=== PATIENT | female | born 1955 | race Caucasian/White ===

== ENCOUNTER 2019-08-11 19:25 | Observation (INO) | payer MEDICARE, MEDICAID ==
[~2019-08-11] VITALS: Ht 170.2 cm; Wt 100.8 kg
[~2019-08-11 19:25] MED LIST: GLIM2TAB7 PO; LOSA1TAB19 PO; METF10002 PO; TRAZ50TA66 PO
[2019-08-11] MEDS ORDERED: SITA100T PO (19:37)
[2019-08-11] MEDS ORDERED: GABA800T5 PO (19:37)
[2019-08-11] MEDS ORDERED: ASPI-515 PO (19:37)
[2019-08-11] MEDS ORDERED: [UNRECOGNIZED DRUG - CODE] PO (19:37)
[2019-08-11] MEDS ORDERED: ALBUTEROL/IPRATROPIUM 2.5MG/0.5MG, 3 ML ONE (19:49)
[2019-08-11] MEDS ORDERED: HYDROmorphone 1 MG/ML, 1ML INJ IV PRN (20:00)
[2019-08-11] MEDS ORDERED: ALBUTEROL/IPRATROPIUM 2.5MG/0.5MG, 3 ML NPPB SCH (20:00)
[2019-08-11] MEDS ORDERED: SODIUM CHLORIDE 0.9% 1,000ML IVBOLUS ONE (20:00)
[2019-08-11] MEDS ORDERED: SODIUM CHLORIDE FLUSH 10ML SYR IVF ONE (20:00)
[2019-08-11] MEDS ORDERED: ONDANSETRON 2MG/ML, 2ML ONE (20:13)
[2019-08-11] MEDS ORDERED: HYDROmorphone 1 MG/ML, 1ML INJ ONE (20:13)
[2019-08-11 20:16] LABS: RAPID INFLUENZA A Negative (Negative); RAPID INFLUENZA B Negative (Negative)
[2019-08-11 20:26] LABS: ALANINE AMINOTRANSFERASE 42 U/L (12-78); ANION GAP 7 mmol/L (5-15); CHLORIDE 108 mmol/L (98-107)
[2019-08-11 20:30] LABS: BASOPHILS # (AUTO) 0.02 x10^3/uL (0-0.1); BASOPHILS % (AUTO) 0 % (0-1); EOSINOPHILS # (AUTO) 0.42 x10^3/uL (0-0.4); EOSINOPHILS % (AUTO) 4 % (1-7); LYMPHOCYTES # (AUTO) 1.58 x10^3/uL (1-3.4); LYMPHOCYTES % (AUTO) 17 % (22-44); MD NO; MEAN CORPUSCULAR HEMOGLOBIN 24.4 pg (27.0-34.8); MEAN CORPUSCULAR HGB CONC 32.2 g/dL (32.4-35.8); MEAN CORPUSCULAR VOLUME 75.6 fL (80-100); MEAN PLATELET VOLUME 9.4 fL (7.4-10.4); MONOCYTES # (AUTO) 0.48 x10^3/uL (0.2-0.8); MONOCYTES % (AUTO) 5 % (2-9); NEUTROPHILS # (AUTO) 7.03 x10^3/uL (1.8-6.8); NEUTROPHILS % (AUTO) 74 % (42-75); PLATELET COUNT 190 x10^3/uL (130-400); RED BLOOD COUNT 6.02 x10^6/uL (3.82-5.3); RED CELL DISTRIBUTION WIDTH 14.3 % (9.6-15.2)
[2019-08-11] MEDS ORDERED: ONDANSETRON 2MG/ML, 2ML IVPush ONE (20:30)
[2019-08-11 20:31] LABS: ALKALINE PHOSPHATASE 134 U/L (45-117); BILIRUBIN,TOTAL 0.6 mg/dL (0.2-1.0); CREATININE 1.12 mg/dL (0.55-1.02); TOTAL PROTEIN 7.5 g/dL (6.4-8.2); TROPONIN I < 0.015 ng/mL (0.000-0.045)
[2019-08-11] MEDS ORDERED: methylPREDNISolone SOD SUCC 125 MG/2 ML ONE (22:35)
--- NOTE | 2019-08-11 22:55 | NUR ---
PT RESTING ON MARANDA. UPDATED ON POC.
--- NOTE | 2019-08-11 22:59 | NUR ---
REPORT TO TERESITA TORREZ
[2019-08-11] MEDS ORDERED: methylPREDNISolone SOD SUCC 125 MG/2 ML IV ONE (23:00)
[2019-08-11 23:20] VITALS: BP 123/86
[2019-08-11 23:21] VITALS: BP 123/86
[2019-08-12 02:00] VITALS: BP 138/83
[2019-08-12] MEDS ORDERED: ATOR40TA PO (02:47)
[2019-08-12] MEDS ORDERED: LOSA25TA25 PO (02:48)
[2019-08-12] MEDS: ENOXAPARIN 40 MG/0.4 ML SQ SCH (02:59)
[2019-08-12] MEDS ORDERED: DOCUSATE 100 MG CAPSULE PO PRN (03:00)
[2019-08-12] MEDS ORDERED: ENALAPRILAT 1.25 MG/ML, 2ML IVPush PRN (03:00)
[2019-08-12] MEDS ORDERED: DEXTROSE 4 GM TAB.CHEW PO PRN (03:00)
[2019-08-12] MEDS ORDERED: DEXTROSE 50%, 50ML SYRINGE IVPush PRN (03:00)
[2019-08-12] MEDS ORDERED: LABETALOL 5MG/ML, 20ML IVPush PRN (03:00)
[2019-08-12] MEDS ORDERED: GLUCAGON 1 MG IM PRN (03:00)
[2019-08-12] MEDS ORDERED: BISACODYL 10 MG SUPP PR PRN (03:00)
[2019-08-12] MEDS ORDERED: PROMETHAZINE 25 MG/ML, 1ML IM PRN (03:00)
[2019-08-12] MEDS ORDERED: POLYETHYLENE GLYCOL 17 GM PACKET PO PRN (03:00)
[2019-08-12] MEDS ORDERED: POTASSIUM CHLORIDE 20 MEQ TAB.ER.PRT PO ONE (03:00)
[2019-08-12] MEDS ORDERED: ONDANSETRON 2MG/ML, 2ML IVPush PRN (03:00)
[2019-08-12] MEDS ORDERED: SODIUM CHLORIDE 0.9% 1,000 ML IV SCH (03:00)
[2019-08-12] MEDS ORDERED: OMNIPAQUE 350 MG/ML, 100ML BOTTLE ONE (03:30)
[2019-08-12 03:34] LABS: BASOPHILS # (AUTO) 0.01 x10^3/uL (0-0.1); BASOPHILS % (AUTO) 0 % (0-1); EOSINOPHILS # (AUTO) 0.03 x10^3/uL (0-0.4); EOSINOPHILS % (AUTO) 0 % (1-7); LYMPHOCYTES % (AUTO) 6 % (22-44); MD NO; MEAN CORPUSCULAR HEMOGLOBIN 24.5 pg (27.0-34.8); MEAN CORPUSCULAR HGB CONC 32.6 g/dL (32.4-35.8); MEAN CORPUSCULAR VOLUME 75.3 fL (80-100); MEAN PLATELET VOLUME 8.9 fL (7.4-10.4); MONOCYTES # (AUTO) 0.09 x10^3/uL (0.2-0.8); MONOCYTES % (AUTO) 1 % (2-9); NEUTROPHILS % (AUTO) 93 % (42-75); PLATELET COUNT 170 x10^3/uL (130-400); RED BLOOD COUNT 5.55 x10^6/uL (3.82-5.3); RED CELL DISTRIBUTION WIDTH 14.9 % (9.6-15.2)
[2019-08-12] MEDS: DOXYCYCLINE 100 MG in DEXTROSE 5% 250 ML IV SCH ×2 (03:37→14:57)
[2019-08-12 03:48] LABS: ALBUMIN 3.5 g/dL (3.4-5.0); ANION GAP 7 mmol/L (5-15); CALCIUM 8.6 mg/dL (8.5-10.1); CHLORIDE 110 mmol/L (98-107)
[2019-08-12 03:52] LABS: ALANINE AMINOTRANSFERASE 36 U/L (12-78); ALKALINE PHOSPHATASE 122 U/L (45-117); BILIRUBIN,TOTAL 0.5 mg/dL (0.2-1.0); CREATININE 1.08 mg/dL (0.55-1.02)
[2019-08-12 03:54] LABS: TROPONIN I < 0.015 ng/mL (0.000-0.045)
[2019-08-12 07:36] VITALS: BP 132/78
[2019-08-12] MEDS: ASPIRIN 81 MG TABLET EC PO SCH (07:51)
[2019-08-12] MEDS: LINAGLIPTIN 5 MG TAB PO SCH (07:51)
[2019-08-12] MEDS: HYDROCHLOROTHIAZIDE 12.5 MG CAPSULE PO SCH (07:51)
[2019-08-12] MEDS: ACETAMINOPHEN 325 MG TABLET PO PRN ×2 (07:51→16:37)
[2019-08-12] MEDS: LOSARTAN 50MG TABLET PO SCH (07:51)
[2019-08-12] MEDS: GABAPENTIN 400 MG CAPSULE PO SCH ×3 (07:51→20:46)
[2019-08-12] MEDS: SODIUM CHLORIDE FLUSH 10ML SYR IVF SCH ×2 (07:54→20:47)
[2019-08-12 08:39] LABS: TROPONIN I < 0.015 ng/mL (0.000-0.045)
[2019-08-12] MEDS: INSULIN GLARGINE 100 UNITS/ML, PEN SQ-INSULIN SCH ×2 (09:38→20:47)
[2019-08-12] MEDS: INSULIN LISPRO 100 UNITS/ML, PEN SQ-INSULIN SCH ×4 (09:39→20:47)
[2019-08-12] MEDS: GUAIFENESIN/DM 200-20MG, 10ML UDC PO PRN ×2 (09:59→16:33)
[2019-08-12] MEDS: BENZONATATE 100 MG CAPSULE PO PRN ×2 (11:32→20:46)
[2019-08-12 12:30] VITALS: BP 144/82
[2019-08-12 19:45] VITALS: BP 146/92
[2019-08-12] MEDS: TRAZODONE 50MG TABLET PO SCH (20:46)
[2019-08-12] MEDS: ATORVASTATIN 40 MG TABLET PO SCH (20:46)
[2019-08-13 00:41] VITALS: BP 138/87
[2019-08-13] MEDS: ENOXAPARIN 40 MG/0.4 ML SQ SCH (03:15)
[2019-08-13] MEDS: DOXYCYCLINE 100 MG in DEXTROSE 5% 250 ML IV SCH (03:15)
[2019-08-13] MEDS: GUAIFENESIN/DM 200-20MG, 10ML UDC PO PRN ×2 (03:24→16:12)
[2019-08-13 06:28] VITALS: BP 107/65
[2019-08-13] MEDS: INSULIN LISPRO 100 UNITS/ML, PEN SQ-INSULIN SCH ×4 (07:00→20:48)
[2019-08-13] MEDS ORDERED: IBUPROFEN 200 MG TABLET PO PRN (09:00)
[2019-08-13] MEDS: SODIUM CHLORIDE FLUSH 10ML SYR IVF SCH ×2 (09:00→20:38)
[2019-08-13] MEDS: INSULIN GLARGINE 100 UNITS/ML, PEN SQ-INSULIN SCH ×2 (09:16→20:48)
[2019-08-13] MEDS: GABAPENTIN 400 MG CAPSULE PO SCH ×3 (09:16→20:38)
[2019-08-13] MEDS: HYDROCHLOROTHIAZIDE 12.5 MG CAPSULE PO SCH (09:17)
[2019-08-13] MEDS: DOXYCYCLINE 100MG TABLET PO SCH ×2 (09:17→20:38)
[2019-08-13] MEDS: LINAGLIPTIN 5 MG TAB PO SCH (09:17)
[2019-08-13] MEDS: LOSARTAN 50MG TABLET PO SCH (09:17)
[2019-08-13] MEDS: ASPIRIN 81 MG TABLET EC PO SCH (09:17)
[2019-08-13] MEDS: BENZONATATE 100 MG CAPSULE PO PRN (09:37)
[2019-08-13 12:01] VITALS: BP 133/85
[2019-08-13 20:30] VITALS: BP 131/84
[2019-08-13] MEDS: TRAZODONE 50MG TABLET PO SCH (20:38)
[2019-08-13] MEDS: ATORVASTATIN 40 MG TABLET PO SCH (20:38)
[2019-08-14 00:39] VITALS: BP 126/79
[2019-08-14] MEDS: ENOXAPARIN 40 MG/0.4 ML SQ SCH (03:26)
[2019-08-14 06:13] LABS: ANION GAP 5 mmol/L (5-15); BASOPHILS # (AUTO) 0.02 x10^3/uL (0-0.1); BASOPHILS % (AUTO) 0 % (0-1); CALCIUM 8.8 mg/dL (8.5-10.1); CHLORIDE 107 mmol/L (98-107); CREATININE 0.83 mg/dL (0.55-1.02); EOSINOPHILS # (AUTO) 0.06 x10^3/uL (0-0.4); EOSINOPHILS % (AUTO) 1 % (1-7); LYMPHOCYTES # (AUTO) 2.43 x10^3/uL (1-3.4); LYMPHOCYTES % (AUTO) 24 % (22-44); MD NO; MEAN CORPUSCULAR HEMOGLOBIN 24.4 pg (27.0-34.8); MEAN CORPUSCULAR HGB CONC 32.1 g/dL (32.4-35.8); MEAN CORPUSCULAR VOLUME 76.1 fL (80-100); MEAN PLATELET VOLUME 8.8 fL (7.4-10.4); MONOCYTES # (AUTO) 0.68 x10^3/uL (0.2-0.8); MONOCYTES % (AUTO) 7 % (2-9); NEUTROPHILS # (AUTO) 6.76 x10^3/uL (1.8-6.8); NEUTROPHILS % (AUTO) 68 % (42-75); PLATELET COUNT 184 x10^3/uL (130-400); RED BLOOD COUNT 5.33 x10^6/uL (3.82-5.3); RED CELL DISTRIBUTION WIDTH 14.8 % (9.6-15.2)
[2019-08-14] MEDS: INSULIN LISPRO 100 UNITS/ML, PEN SQ-INSULIN SCH ×2 (07:00→11:13)
[2019-08-14 07:12] VITALS: BP 100/67
[2019-08-14] MEDS: ASPIRIN 81 MG TABLET EC PO SCH (08:27)
[2019-08-14] MEDS: GABAPENTIN 400 MG CAPSULE PO SCH (08:27)
[2019-08-14] MEDS: BENZONATATE 100 MG CAPSULE PO PRN (08:27)
[2019-08-14] MEDS: LINAGLIPTIN 5 MG TAB PO SCH (08:27)
[2019-08-14] MEDS: HYDROCHLOROTHIAZIDE 12.5 MG CAPSULE PO SCH (08:28)
[2019-08-14] MEDS: LOSARTAN 50MG TABLET PO SCH (08:28)
[2019-08-14] MEDS: DOXYCYCLINE 100MG TABLET PO SCH (08:28)
[2019-08-14] MEDS: INSULIN GLARGINE 100 UNITS/ML, PEN SQ-INSULIN SCH (08:29)
[2019-08-14] MEDS ORDERED: GUAI5SYR PO (08:51)
[2019-08-14] MEDS ORDERED: GLIP5TAB22 PO (08:51)
[2019-08-14] MEDS ORDERED: DOXY100T PO (08:51)
[2019-08-14] MEDS ORDERED: PRED20TA PO (08:51)
[2019-08-14] MEDS ORDERED: BENZ-17 PO (08:51)
[2019-08-14] MEDS ORDERED: ALBU8.5H8 INH (08:55)
[2019-08-14] MEDS: SODIUM CHLORIDE FLUSH 10ML SYR IVF SCH (09:00)
[2019-08-14] MEDS ORDERED: ONDANSETRON ODT 4 MG ONE (09:53)
[2019-08-14] MEDS: GUAIFENESIN/DM 200-20MG, 10ML UDC PO PRN (11:12)
== END 2019-08-14 11:45 | disposition home or self-care (01) ==
LOC: ED 20:12 → EDIP 22:37 → INTOOBSV 22:37 → 4EST 23:16 → INTOOBSV 08-13 14:20 → OBSVTOIN 08-13 14:20 → DCLOUNGE 08-14 11:35
PROVIDERS: ADMIT Internal Medicine; ATTEND Family Medicine
DX: A41.9 Sepsis, unspecified organism (principal); J20.9 Acute bronchitis, unspecified; E11.65 Type 2 diabetes mellitus with hyperglycemia; E78.5 Hyperlipidemia, unspecified; E86.0 Dehydration; E87.6 Hypokalemia; I11.9 Hypertensive heart disease without heart failure; I25.10 Atherosclerotic heart disease of native coronary artery without angina pectoris; I21.9 Acute myocardial infarction, unspecified; J41.1 Mucopurulent chronic bronchitis; R00.0 Tachycardia, unspecified; Z96.651 Presence of right artificial knee joint; Z79.84 Long term (current) use of oral hypoglycemic drugs; Z88.5 Allergy status to narcotic agent; E66.9 Obesity, unspecified; Z79.4 Long term (current) use of insulin; Z79.82 Long term (current) use of aspirin
CPT/HCPCS: 36415; 71046; 71275; 80048; 80053; 82962; 83036; 83735; 83880; 84145; 84484; 85025; 87040; 87400; 93005; 94640; 96365; 96366; 96372; 96375; 96376; 99285; G0378; J1170; J1650; J1815; J2405; J2930; J7030; J7060; J7512; Q9967; 96374